=== PATIENT | male | born 1995 | race Caucasian/White ===

== ENCOUNTER 2018-02-02 11:52 | Emergency (ER) | payer BC, OTHER ==
[~2018-02-02] VITALS: Ht 175.3 cm; Wt 102.5 kg
[2018-02-02 12:05] VITALS: TEMP 98.1
[2018-02-02 13:15] VITALS: BP 126/68
== END 2018-02-02 13:15 | disposition home or self-care (01) ==
LOC: ED 11:52
DX: S80.02XA Contusion of left knee, initial encounter (principal); S80.01XA Contusion of right knee, initial encounter; M25.561 Pain in right knee; V59.9XXA Occupant (driver) (passenger) of pick-up truck or van injured in unspecified traffic accident, initial encounter
CPT/HCPCS: 99283